=== PATIENT | male | born 1965 | race Caucasian/White ===

== ENCOUNTER 2019-03-08 18:48 | Emergency (ER) | payer BC ==
[2019-03-08] MEDS ORDERED: LIDOCAINE 2% W/EPI 1:200,000 MPF 20 ML VIAL IM ONE (19:33)
--- NOTE | 2019-03-08 20:15 | ER ---
Nurse's Notes [facility] Name: Onel Novak Age: 54 yrs Sex: Male : 1965 Arrival Date: 03/08/2019 Time: 18:52 Bed 19 Private MD: Diagnosis: Gluteal Cleft Abscess;Cellulitis Presentation: 03/08 19:06 Presenting complaint: Patient states: Pilonidal cyst off and on x 8 months, currently ph inflamed, denies drainage or fever. Transition of care: patient was not received from another setting of care. Onset of symptoms was March 08, 2019. Risk Assessment: Do you want to hurt yourself or someone else? Patient reports no desire to harm self or others. Initial Sepsis Screen: Does the patient meet any 2 criteria? No. Patient's initial sepsis screen is negative. Does the patient have a suspected source of infection? No. Patient's initial sepsis screen is negative. Care prior to arrival: None. 19:06 Method Of Arrival: Ambulatory 19:06 Acuity: CHASE 4 ph Historical: - Allergies: 19:08 No Known Allergies; ph - Home Meds: 19:08 None [Active]; ph - PMHx: 19:08 None; ph - PSHx: 19:08 None; ph - Immunization history:: Adult Immunizations unknown. - Social history:: Smoking status: Patient/guardian denies using tobacco. - Ebola Screening: : No symptoms or risks identified at this time. Screenin:10 Abuse screen: Denies threats or abuse. Denies injuries from another. Nutritional rr5 screening: No deficits noted. Tuberculosis screening: No symptoms or risk factors identified. Fall Risk None identified. Total Jay Fall Scale indicates No Risk (0-24 pts). Assessment: 19:10 General: Appears in no apparent distress. comfortable, Behavior is calm, cooperative, rr5 appropriate for age. 19:10 Pain: Complains of pain in gluteal cleft Pain does not radiate. Pain currently is 8 out rr5 of 10 on a pain scale. Quality of pain is described as aching, Pain began gradually, Is intermittent. Neuro: Level of Consciousness is awake, alert, obeys commands, Oriented to person, place, time, situation, Appropriate for age. Cardiovascular: Capillary refill < 3 seconds Patient's skin is warm and dry. Respiratory: Airway is patent Respiratory effort is even, unlabored, Respiratory pattern is regular, symmetrical. GI: No signs and/or symptoms were reported involving the gastrointestinal system. : No signs and/or symptoms were reported regarding the genitourinary system. EENT: No signs and/or symptoms were reported regarding the EENT system. Derm: Skin is intact, Skin temperature is warm Abscess located on gluteal cleft Reports pain that is 8 out of 10 on a pain scale. cyst on the left gluteal area. Musculoskeletal: Circulation, motion, and sensation intact. Capillary refill < 3 seconds. 20:20 Reassessment: Patient appears in no apparent distress at this time. Patient is alert, rr5 oriented x 3, equal unlabored respirations, skin warm/dry/pink. discharge instruction given and explained without complaints made. Patient states feeling better. Patient states symptoms have improved. Vital Signs: 19:08 BP 152 / 86; Pulse 85; Resp 18; Temp 98.4; Pulse Ox 99% on R/A; Weight 85.73 kg; Height ph 5 ft. 10 in. (177.80 cm); Pain 7/10; 20:30 BP 141 / 80; Pulse 80; Resp 17; Pulse Ox 99% on R/A; rr5 19:08 Body Mass Index 27.12 (85.73 kg, 177.80 cm) ph ED Course: 18:52 Patient arrived in ED. mr 19:08 Triage completed. ph 19:09 Pepe Rivera, RN is Primary Nurse. rr5 19:09 Arm band placed on. ph 19:10 Patient has correct armband on for positive identification. Placed in gown. Bed in low rr5 position. Call light in reach. 19:16 Patricio Garcia MD is Attending Physician. ps1 20:15 Assist provider with I \T\ D: of an abscess on left left gluteal Set up I\T\D tray. rr 5 Performed by Patricio Garcia MD Wound packed. 4X4s, Dressing with 4X4s, tape Patient tolerated well. 20:37 Patient did not have IV access during this emergency room visit. rr5 Administered Medications: 20:10 Drug: Lidocaine-Epinephrine -2 % (1:100,000) 10 ml Route: Infiltration; rr5 20:30 Follow up: Response: No adverse reaction rr5 Outcome: 20:14 Discharge ordered by . ps1 20:37 Discharged to home ambulatory. rr5 20:37 Condition: stable 20:37 Discharge instructions given to patient, Instructed on discharge instructions, follow up and referral plans. Demonstrated understanding of instructions, follow-up care, medications, Prescriptions given X 4. 20:41 Patient left the ED. rr5 Signatures: Elsie Marcelino Patricia RN RN Patricio Garcia MD MD ps1 Pepe Rivera RN RN rr5
--- NOTE | 2019-03-08 20:16 | EDPHYS ---
Physician Documentation [facility] Name: Onel Novak Age: 54 yrs Sex: Male : 1965 Arrival Date: 03/08/2019 Time: 18:52 Bed 19 Private MD: ED Physician Patricio Garcia HPI: 03/08 20:09 This 54 yrs old Male presents to ER via Ambulatory with complaints of Cyst. ps1 20:09 Abscess is localized in left gluteal cleft. Mild surrounding cellulitis. No fever. ps1 Onset was several months ago and has been treated twice by two different doctors with antibiotics with no I\T\D. Now pointing and raised, fluctuant. Pain rated as moderate and worse with sitting. . Historical: - Allergies: 19:08 No Known Allergies; ph - Home Meds: 19:08 None [Active]; ph - PMHx: 19:08 None; ph - PSHx: 19:08 None; ph - Immunization history:: Adult Immunizations unknown. - Social history:: Smoking status: Patient/guardian denies using tobacco. - Ebola Screening: : No symptoms or risks identified at this time. ROS: 20:09 Constitutional: Negative for fever, chills, and weight loss, Eyes: Negative for injury, ps1 pain, redness, and discharge, ENT: Negative for injury, pain, and discharge, Cardiovascular: Negative for chest pain, palpitations, and edema, Respiratory: Negative for shortness of breath, cough, wheezing, and pleuritic chest pain, Abdomen/GI: Negative for abdominal pain, nausea, vomiting, diarrhea, and constipation, MS/Extremity: Negative for injury and deformity, Neuro: Negative for headache, weakness, numbness, tingling, and seizure. 20:09 Skin: Positive for abscess, of the gluteal cleft. Exam: 20:09 Constitutional: This is a well developed, well nourished patient who is awake, alert, ps1 and in no acute distress. Head/Face: Normocephalic, atraumatic. Eyes: Pupils equal round and reactive to light, extra-ocular motions intact. Lids and lashes normal. Conjunctiva and sclera are non-icteric and not injected. Chest/axilla: Normal chest wall appearance and motion. Nontender with no deformity. No lesions are appreciated. Cardiovascular: Regular rate and rhythm. No gallops, murmurs, or rubs. Normal PMI, no JVD. No pulse deficits. Respiratory: Lungs have equal breath sounds bilaterally, clear to auscultation and percussion. No rales, rhonchi or wheezes noted. No increased work of breathing, no retractions or nasal flaring. Abdomen/GI: Soft, non-tender, with normal bowel sounds. No distension or tympany. No guarding or rebound. No evidence of tenderness throughout. MS/ Extremity: Pulses equal, no cyanosis. Neurovascular intact. Full, normal range of motion. Neuro: Awake and alert, GCS 15, oriented to person, place, time, and situation. Cranial nerves II-XII grossly intact. Sensory grossly intact. 20:09 Skin: Appearance: normal except for affected area, abscess, that is moderate sized, of the gluteal cleft, with drainage, with fluctuance, with induration, with pointing, with surrounding cellulitis, that is mild. Vital Signs: 19:08 BP 152 / 86; Pulse 85; Resp 18; Temp 98.4; Pulse Ox 99% on R/A; Weight 85.73 kg; Height ph 5 ft. 10 in. (177.80 cm); Pain 7/10; 20:30 BP 141 / 80; Pulse 80; Resp 17; Pulse Ox 99% on R/A; rr5 19:08 Body Mass Index 27.12 (85.73 kg, 177.80 cm) ph Procedures: 20:09 I \T\ D: Incision and drainage was performed for an abscess of the left gluteal cleft ps1 Prepped with chlorhexadine. Anesthetized with ml's 2% Lidocaine with epinephrine. 5 ml's 2% Lidocaine with epinephrine. Incised with #11 blade. Drained moderate amount purulent fluid. serosanguinous fluid. bloody fluid. Packed with iodoform gauze, Dressing: sterile 4x4 gauze, the patient tolerated the procedure well. MDM: 20:09 Data reviewed: vital signs, nurses notes, and as a result, I will discharge patient. ps1 Counseling: I had a detailed discussion with the patient and/or guardian regarding: the historical points, exam findings, and any diagnostic results supporting the discharge/admit diagnosis, to return to the emergency department if symptoms worsen or persist or if there are any questions or concerns that arise at home. 20:14 Patient medically screened. ps1 03/08 20:40 Order name: Incision \T\ Drainage Setup; Complete Time: 20:40 rr5 Administered Medications: 20:10 Drug: Lidocaine-Epinephrine -2 % (1:100,000) 10 ml Route: Infiltration; rr5 20:30 Follow up: Response: No adverse reaction rr5 Disposition: 03/08/19 20:14 Discharged to Home. Impression: Gluteal Cleft Abscess, Cellulitis. - Condition is Stable. - Discharge Instructions: Skin Abscess. - Prescriptions for Keflex 500 mg Oral Capsule - take 1 capsule by ORAL route every 8 hours for 10 days; 30 capsule. Tylenol- Codeine #3 300-30 mg Oral Tablet - take 2 tablet by ORAL route every 6 hours As needed; 30 tablet. Zofran 4 mg Oral Tablet - take 1 tablet by ORAL route every 12 hours As needed; 20 tablet. Bactrim DS 800- 160 mg Oral Tablet - take 1 tablet by ORAL route every 12 hours for 10 days; 20 tablet. - Medication Reconciliation Form, Thank You Letter, Antibiotic Education, Prescription Opioid Use form. - Follow up: Private Physician; When: As needed; Reason: Wound Recheck, Recheck today's complaints, Continuance of care. Follow up: Emergency Department; When: As needed; Reason: Fever > 102 F, Worsening of condition. - Problem is new. - Symptoms have improved. Signatures: Marisa Bui, RN RN Patricio Garcia MD MD ps1 Roque, Raymond, RN RN rr5 Corrections: (The following items were deleted from the chart) 20:41 20:14 03/08/2019 20:14 Discharged to Home. Impression: Gluteal Cleft Abscess; rr5 Cellulitis. Condition is Stable. Forms are Medication Reconciliation Form, Thank You Letter, Antibiotic Education, Prescription Opioid Use. Follow up: Private Physician; When: As needed; Reason: Wound Recheck, Recheck today's complaints, Continuance of care. Follow up: Emergency Department; When: As needed; Reason: Fever > 102 F, Worsening of condition. Problem is new. Symptoms have improved. ps1
== END 2019-03-08 20:41 | disposition home or self-care (01) ==
LOC: ER 18:48
PROC: 0J990ZZ Drainage of Buttock Subcutaneous Tissue and Fascia, Open Approach (ICD-10-PCS; principal; 2019-03-08)
DX: L03.317 Cellulitis of buttock (principal)
CPT/HCPCS: 99283